=== PATIENT | female | born 2000 | race Caucasian/White ===

== ENCOUNTER 2020-07-13 18:19 | Emergency (ER) | payer MEDICAID, OTHER ==
[~2020-07-13] VITALS: Ht 154.9 cm; Wt 55.2 kg
--- NOTE | 2020-07-13 19:26 | NUR ---
NIL X 3
--- NOTE | 2020-07-13 20:10 | NUR ---
PT TO ROOM FROM LOBBY AT THIS TIME
[2020-07-13 20:27] LABS: MICROSCOPIC AUTO
[2020-07-13 20:46] LABS: BASOPHILS % (AUTO) 1 % (0-1); EOSINOPHILS % (AUTO) 2 % (1-7); LYMPHOCYTES % (AUTO) 43 % (22-44); MEAN CORPUSCULAR HEMOGLOBIN 27.5 pg (27.0-34.8); MEAN CORPUSCULAR HGB CONC 33.2 g/dL (32.4-35.8); MEAN PLATELET VOLUME 8.1 fL (7.4-10.4); MONOCYTES % (AUTO) 6 % (2-9); NEUTROPHILS % (AUTO) 49 % (42-75); PLATELET COUNT 320 x10^3/uL (130-400); RED BLOOD COUNT 4.73 x10^6/uL (3.82-5.3); RED CELL DISTRIBUTION WIDTH 14.4 % (9.6-15.2)
[2020-07-13 20:51] LABS: ANION GAP 7 mmol/L (5-15); CALCIUM 8.6 mg/dL (8.5-10.1); CHLORIDE 110 mmol/L (98-107)
[2020-07-13 20:56] LABS: CREATININE 1.05 mg/dL (0.55-1.02)
[2020-07-13 20:57] LABS: MD NO
[2020-07-13 21:30] VITALS: BP 104/53
== END 2020-07-13 21:53 | disposition home or self-care (01) ==
LOC: ED 21:00
DX: S39.012A Strain of muscle, fascia and tendon of lower back, initial encounter (principal); R10.12 Left upper quadrant pain; R10.2 Pelvic and perineal pain; X58.XXXA Exposure to other specified factors, initial encounter; Y93.89 Activity, other specified; Y92.89 Other specified places as the place of occurrence of the external cause; Y99.8 Other external cause status
CPT/HCPCS: 36415; 76770; 76801; 80048; 81001; 82040; 84702; 85025; 87086; 99285

== ENCOUNTER 2020-12-15 14:12 | Emergency (ER) | payer MEDICAID ==
[~2020-12-15] VITALS: Ht 154.9 cm; Wt 49.5 kg
[2020-12-15 16:22] LABS: BASOPHILS % (AUTO) 1 % (0-1); EOSINOPHILS % (AUTO) 1 % (1-7); LYMPHOCYTES % (AUTO) 38 % (22-44); MEAN CORPUSCULAR HEMOGLOBIN 28.7 pg (27.0-34.8); MEAN CORPUSCULAR HGB CONC 33.4 g/dL (32.4-35.8); MEAN PLATELET VOLUME 7.8 fL (7.4-10.4); MONOCYTES % (AUTO) 7 % (2-9); NEUTROPHILS % (AUTO) 54 % (42-75); PLATELET COUNT 267 x10^3/uL (130-400); RED BLOOD COUNT 4.59 x10^6/uL (3.82-5.3); RED CELL DISTRIBUTION WIDTH 13.7 % (9.6-15.2)
[2020-12-15 16:31] LABS: ALANINE AMINOTRANSFERASE 15 U/L (12-78); ALBUMIN 3.9 g/dL (3.4-5.0); ANION GAP 5 mmol/L (5-15); CALCIUM 8.8 mg/dL (8.5-10.1); CHLORIDE 109 mmol/L (98-107); CREATININE 0.89 mg/dL (0.55-1.02)
[2020-12-15 16:35] LABS: ALKALINE PHOSPHATASE 50 U/L (45-117); BILIRUBIN,TOTAL 0.5 mg/dL (0.2-1.0); TOTAL PROTEIN 7.3 g/dL (6.4-8.2)
--- NOTE | 2020-12-15 17:36 | NUR ---
PT URINE SENT TO LAB
[2020-12-15 18:22] LABS: MICROSCOPIC NOT IND
[2020-12-15 18:46] VITALS: BP 99/55
--- NOTE | 2020-12-15 18:47 | NUR ---
PT REC'VD DISCHARGE EDUCATION AND INSTRUCTIONS. PT HAD NO FURTHER QUESTIONS.
--- NOTE | 2020-12-15 18:54 | NUR ---
PT AMBULATED TO IN AREA, STEAY GAIT.
== END 2020-12-15 18:58 | disposition home or self-care (01) ==
LOC: ED 14:42
DX: N83.02 Follicular cyst of left ovary (principal); N83.01 Follicular cyst of right ovary; E28.2 Polycystic ovarian syndrome
CPT/HCPCS: 36415; 76830; 80053; 81003; 84703; 85025; 99284

== ENCOUNTER 2021-02-09 13:57 | Emergency (ER) | payer MEDICAID ==
[~2021-02-09] VITALS: Ht 154.9 cm; Wt 48.0 kg
[2021-02-09 14:00] VITALS: BP 105/69
[2021-02-09 15:49] LABS: ALBUMIN 3.5 g/dL (3.4-5.0); ANION GAP 4 mmol/L (5-15); CHLORIDE 106 mmol/L (98-107)
[2021-02-09 15:55] LABS: ALANINE AMINOTRANSFERASE 17 U/L (12-78); ALKALINE PHOSPHATASE 66 U/L (45-117); BASOPHILS % (AUTO) 1 % (0-1); BILIRUBIN,TOTAL 0.3 mg/dL (0.2-1.0); CREATININE 0.88 mg/dL (0.55-1.02); EOSINOPHILS % (AUTO) 1 % (1-7); LYMPHOCYTES % (AUTO) 32 % (22-44); MEAN CORPUSCULAR HEMOGLOBIN 28.9 pg (27.0-34.8); MEAN CORPUSCULAR HGB CONC 33.6 g/dL (32.4-35.8); MONOCYTES % (AUTO) 5 % (2-9); NEUTROPHILS % (AUTO) 61 % (42-75); PLATELET COUNT 342 x10^3/uL (130-400); RED CELL DISTRIBUTION WIDTH 13.7 % (9.6-15.2); TOTAL PROTEIN 7.2 g/dL (6.4-8.2)
[2021-02-09 16:37] LABS: MICROSCOPIC AUTO
--- NOTE | 2021-02-09 17:39 | NUR ---
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
--- NOTE | 2021-02-09 19:22 | NUR ---
Patient/Caregiver given discharge instructions and they have confirmed that they understand the instructions. Patient ambulatory with steady gait. NAD, all questions answered appropriately, denies additional needs at this time. No personal belongings left in room after discharge.
== END 2021-02-09 19:24 | disposition home or self-care (01) ==
LOC: ED 19:16
DX: N83.292 Other ovarian cyst, left side (principal); N83.291 Other ovarian cyst, right side; R10.31 Right lower quadrant pain; R10.32 Left lower quadrant pain; G43.909 Migraine, unspecified, not intractable, without status migrainosus
CPT/HCPCS: 36415; 76830; 80053; 81001; 84703; 85025; 87086; 99284